=== PATIENT | female | born 1960 | race Caucasian/White ===

== ENCOUNTER 2016-12-12 17:32 | Emergency (ER) | payer OTHER ==
[~2016-12-12] VITALS: Ht 160 cm; Wt 72.5 kg
[~2016-12-12 17:32] MED LIST: PRED20 PO; RANI150T PO; ZYRT10TA12 PO
[2016-12-12 17:33] VITALS: BP 159/86; PULSE 89; RESP 18; TEMP 98.4; O2SAT 99
--- NOTE | 2016-12-12 17:54 | PD ---
Physical Exam Date Seen by Provider: Dec 12, 2016 Time Seen by Provider: 17:51 Narrative 56 YOWF C/O L FLANK TO THE R BACK PAIN WITH NAUSEA THIS EVENING. 7/10 PAIN WORSE WITH DEEP BREATH. NO RECENT ILLNESS. VS REVIEWED WAITING FOR BED PLACEMENT Data Data Last Documented VS Vital Signs Date Time Temp Pulse Resp B/P Pulse Ox O2 Delivery O2 Flow Rate FiO2 12/12/16 17:33 98.4 89 18 159/86 99 Room Air MDM Supervised Visit with BECKY: Manuel Peacock Dec 12, 2016 17:54
== END 2016-12-12 19:10 | disposition left against medical advice (07) ==
LOC: NED 17:32
DX: M54.9 Dorsalgia, unspecified (principal); R11.0 Nausea
CPT/HCPCS: 99281